=== PATIENT | male | born 1945 | race Caucasian/White ===

== ENCOUNTER → 2017-05-16 | Outpatient (REF) | payer MEDICARE, BC ==
[2017-05-16 12:23] LABS: ALBUMIN 3.7 GM/DL (3.2-5.2); ALBUMIN/GLOBULIN RATIO 0.86 (1.00-1.93); ALKALINE PHOSPHATASE 55 U/L (45-117); ALT/SGPT 27 U/L (12-78); ANION GAP 9 MEQ/L (8-16); AST/SGOT 18 U/L (15-37); BILIRUBIN,TOTAL 0.5 MG/DL (0.2-1.0); BLOOD UREA NITROGEN 22 MG/DL (7-18); CALCIUM LEVEL 8.9 MG/DL (8.8-10.2); CARBON DIOXIDE LEVEL 26 MEQ/L (21-32); CHLORIDE LEVEL 107 MEQ/L (98-107); CHOLESTEROL LEVEL 222 MG/DL (<200); CREATININE FOR GFR 1.15 MG/DL (0.70-1.30); GLOMERULAR FILTRATION RATE > 60.0 (>42); GLUCOSE, FASTING 98 MG/DL (83-110); POTASSIUM SERUM 4.6 MEQ/L (3.5-5.1); SODIUM LEVEL 142 MEQ/L (136-145); TRIGLYCERIDES LEVEL 77 MG/DL (<150)
== END ==
LOC: M SFHCCLAY 07:53
PROVIDERS: ATTEND Family Medicine
DX: Z00.00 Encounter for general adult medical examination without abnormal findings (principal); Z12.5 Encounter for screening for malignant neoplasm of prostate; E78.5 Hyperlipidemia, unspecified
CPT/HCPCS: 80053; 80061; 84443; G0103

== ENCOUNTER 2017-08-14 09:18 | Day surgery (SDC) | payer MEDICARE, BC ==
[~2017-08-14] VITALS: Ht 167.6 cm; Wt 82.1 kg
[~2017-08-14 09:18] MED LIST: ASPI1TAB PO; IBUP-1114 PO; SIMV10TA2 PO; TRAZ-136 PO
[2017-08-14] MEDS ORDERED: NS 1,000 ML IV ONE (09:30)
[2017-08-14] MEDS ORDERED: VITA500046 PO (10:10)
[2017-08-14] MEDS ORDERED: LIDOCAINE 2% INJ 100 MG/5 ML SDV (FOR ANES.) As Ordered ONE (10:47)
[2017-08-14] MEDS ORDERED: PROPOFOL 500 MG/50 ML VIAL As Ordered ONE (10:47)
--- NOTE | 2017-08-14 11:19 | ROOR ---
Patient Name: Jossue Matthew Procedure Date: 08/14/2017 10:47 AM Date of : 1945 Age: 71 Room: [facility] Gender: Male Note Status: Finalized Procedure: Total Colonoscopy to Cecum + Cold Snare Polypectomy Indications: High risk colon cancer surveillance: Personal history of colonic polyps, Last colonoscopy: 2013 Providers: Rosalino Shipman MD Referring MD: ALBERTO HEBERT DO Requesting Provider: Medicines: Monitored Anesthesia Care Complications: No immediate complications. Procedure: Pre-Anesthesia Assessment: - The heart rate, respiratory rate, oxygen saturations, blood pressure, adequacy of pulmonary ventilation, and response to care were monitored throughout the procedure. The Colonoscope was introduced through the anus and advanced to the cecum, identified by appendiceal orifice and ileocecal valve. The colonoscopy was performed without difficulty. The patient tolerated the procedure well. The quality of the bowel preparation was excellent. Findings: The perianal and digital rectal examinations were normal. Non-bleeding internal hemorrhoids were found during retroflexion. The hemorrhoids were small and Grade I (internal hemorrhoids that do not prolapse). Multiple sessile polyps were found in the ascending colon. The polyps were small in size. These polyps were removed with a cold snare. Resection and retrieval were complete. Multiple small and large-mouthed diverticula were found in the recto-sigmoid colon, sigmoid colon and descending colon. The exam was otherwise without abnormality on direct and retroflexion views. One medium-sized angioectasia without bleeding was found in the cecum. Impression: - Non-bleeding internal hemorrhoids. - Multiple small polyps in the ascending colon, removed with a cold snare. Resected and retrieved. - Diverticulosis in the recto-sigmoid colon, in the sigmoid colon and in the descending colon. - The examination was otherwise normal on direct and retroflexion views. - One non-bleeding colonic angioectasia. - The exam was otherwise normal to the cecum. Recommendation: - Patient has a contact number available for emergencies. The signs and symptoms of potential delayed complications were discussed with the patient. Return to normal activities tomorrow. Written discharge instructions were provided to the patient. - High fiber diet. - Discharge patient to home. - Continue present medications. - Await pathology results. - Telephone GI clinic for pathology results in 1 week. - Check Portal Online for Path Results.([email or web address]) - The findings and recommendations were discussed with the patient's family. Rosalino Shipman MD Rosalino Shipman MD 08/14/2017 11:19:24 AM This report has been signed electronically. Number of Addenda: 0 Note Initiated On: 08/14/2017 10:47 AM Estimated Blood Loss: Estimated blood loss: none.
[2017-08-14 11:40] VITALS: BP 128/82
== END 2017-08-14 11:54 | disposition home or self-care (01) ==
LOC: M OPP 09:18
PROVIDERS: ATTEND Internal Medicine Gastroenterology
DX: Z12.11 Encounter for screening for malignant neoplasm of colon (principal); Z86.010 Personal history of colon polyps; Z80.0 Family history of malignant neoplasm of digestive organs; D12.2 Benign neoplasm of ascending colon; K64.0 First degree hemorrhoids; K55.20 Angiodysplasia of colon without hemorrhage; K57.30 Diverticulosis of large intestine without perforation or abscess without bleeding; E78.5 Hyperlipidemia, unspecified; Z85.51 Personal history of malignant neoplasm of bladder; Z87.891 Personal history of nicotine dependence; M25.50 Pain in unspecified joint; M25.60 Stiffness of unspecified joint, not elsewhere classified; Z79.82 Long term (current) use of aspirin; Z79.899 Other long term (current) drug therapy

== ENCOUNTER → 2018-05-07 | Outpatient (REF) | payer MEDICARE, BC ==
[2018-05-07 12:20] LABS: CREATININE FOR GFR 1.17 MG/DL (0.70-1.30); GLOMERULAR FILTRATION RATE > 60.0 (>42)
[2018-05-07 12:20] LABS: BLOOD UREA NITROGEN 20 MG/DL (7-18)
== END ==
LOC: M LABDRAWC 11:36
DX: M54.2 Cervicalgia (principal)

== ENCOUNTER → 2018-05-07 | Outpatient (REF) | payer MEDICARE, BC ==
[2018-05-07 12:30] LABS: ALBUMIN 3.7 GM/DL (3.2-5.2); ALBUMIN/GLOBULIN RATIO 0.86 (1.00-1.93); ALKALINE PHOSPHATASE 56 U/L (45-117); ALT/SGPT 29 U/L (12-78); ANION GAP 9 MEQ/L (8-16); AST/SGOT 18 U/L (7-37); BILIRUBIN,TOTAL 0.4 MG/DL (0.2-1.0); BLOOD UREA NITROGEN 19 MG/DL (7-18); CALCIUM LEVEL 8.8 MG/DL (8.8-10.2); CARBON DIOXIDE LEVEL 26 MEQ/L (21-32); CHLORIDE LEVEL 106 MEQ/L (98-107); CHOLESTEROL LEVEL 227 MG/DL (<200); CHOLESTEROL RISK RATIO 3.492 (<5); CREATININE FOR GFR 1.12 MG/DL (0.70-1.30); GLOMERULAR FILTRATION RATE > 60.0 (>42); GLUCOSE, FASTING 99 MG/DL (70-100); HDL CHOLESTEROL 65 MG/DL (>40); LDL CHOLESTEROL 143.4 MG/DL (<100); NON-HDL-C 162 MG/DL; POTASSIUM SERUM 4.5 MEQ/L (3.5-5.1); PSA SCREENING 0.41 NG/ML (< 4.0); SODIUM LEVEL 141 MEQ/L (136-145); TRIGLYCERIDES LEVEL 93 MG/DL (<150)
== END ==
LOC: M SFHCCLAY 08:06
DX: Z00.00 Encounter for general adult medical examination without abnormal findings (principal); Z12.5 Encounter for screening for malignant neoplasm of prostate; E07.9 Disorder of thyroid, unspecified; E78.00 Pure hypercholesterolemia, unspecified
CPT/HCPCS: 84443

== ENCOUNTER → 2019-06-10 | Outpatient (REF) | payer MEDICARE, BC ==
[~2019-06-10] MED LIST changes: -ASPI1TAB PO; +ASPI81TA26 PO; -SIMV10TA2 PO; +SIMV10TA21 PO; -TRAZ-136 PO; +TRAZ-257 PO; +VITA500046 PO
[2019-06-10 11:55] LABS: HEMATOCRIT 42.5 % (42.0-52.0); MEAN CORPUSCULAR HEMOGLOBIN 31.4 pg (27.0-33.0); MEAN CORPUSCULAR HGB CONC 32.9 g/dl (32.0-36.5); MEAN CORPUSCULAR VOLUME 95.3 fl (80.0-96.0); PLATELET COUNT, AUTOMATED 239 10^3/uL (150-450); RED BLOOD COUNT 4.46 10^6/uL (4.30-6.10); WHITE BLOOD COUNT 7.1 10^3/uL (4.0-10.0)
[2019-06-10 12:33] LABS: ALBUMIN 3.9 GM/DL (3.2-5.2); ALT/SGPT 27 U/L (12-78); BILIRUBIN,TOTAL 0.6 MG/DL (0.2-1.0); BLOOD UREA NITROGEN 17 MG/DL (7-18); CALCIUM LEVEL 8.9 MG/DL (8.8-10.2); CARBON DIOXIDE LEVEL 28 MEQ/L (21-32); CHLORIDE LEVEL 103 MEQ/L (98-107); CHOLESTEROL LEVEL 210 MG/DL (<200); CHOLESTEROL RISK RATIO 2.876 (<5); CREATININE FOR GFR 1.25 MG/DL (0.70-1.30); GLOMERULAR FILTRATION RATE > 60.0 (>42); GLUCOSE, FASTING 102 MG/DL (70-100); HDL CHOLESTEROL 73 MG/DL (>40); LDL CHOLESTEROL 123 MG/DL (<100); NON-HDL-C 137 MG/DL; POTASSIUM SERUM 4.7 MEQ/L (3.5-5.1); SODIUM LEVEL 138 MEQ/L (136-145); TOTAL PROTEIN 7.9 GM/DL (6.4-8.2); TRIGLYCERIDES LEVEL 68 MG/DL (<150)
== END ==
LOC: M SFHCCLAY 08:35
PROVIDERS: ATTEND Family Medicine
DX: Z12.5 Encounter for screening for malignant neoplasm of prostate (principal); Z85.51 Personal history of malignant neoplasm of bladder; E78.2 Mixed hyperlipidemia
CPT/HCPCS: 80053; 80061; 85027; G0103

== ENCOUNTER → 2019-08-02 | Outpatient (REF) | payer MEDICARE, BC ==
[~2019-08-02] MED LIST changes: +SIMV10TA2 PO; -SIMV10TA21 PO; +TRAZ-163 PO; -TRAZ-257 PO
[2019-08-02 13:03] LABS: CREATININE FOR GFR 1.3 MG/DL (0.70-1.30); GLOMERULAR FILTRATION RATE 57.4 (>42)
== END ==
LOC: M SFHCCLAY 11:18
PROVIDERS: ATTEND Physician Assistant
DX: Z01.812 Encounter for preprocedural laboratory examination (principal)

== ENCOUNTER → 2019-08-09 | Outpatient (CLI) | payer MEDICARE, BC ==
--- NOTE | 2019-08-09 15:22 | REP ---
MRI lumbar spine: 08/09/2019. Indication: Low back pain. Comparison: None. Technique: Multiplanar short and long TR sequences of the lumbar spine were obtained including post-gadolinium images. 16 ml IV ProHance were administered. Findings: There is overall straightening of the lumbar lordosis. There is minimal retrolisthesis of L2 on L3 and minimal anterolisthesis of L5 on S1. The visualized cord is unremarkable. There is a small area of elevated T2 signal with gadolinium enhancement involving the right pedicle of the L2. No additional concerning marrow signal is present. L1/L2: Diffuse disc and spur complex, most apparent anteriorly and mild bilateral facet arthropathy are present with severe narrowing of the spinal canal. There is severe right and moderate left neural foraminal narrowing. L2/L3: Diffuse disc and spur complex is present, most apparent anteriorly with bilateral facet arthropathy. There is severe left greater than right recess narrowing. Moderate bilateral neural foraminal narrowing is present. L3/L4: Diffuse disc and spur complex and significant bilateral facet arthropathy are present with severe spinal canal and left neural foraminal narrowing. There is moderate right neural foraminal narrowing. L4/L5: Diffuse disc and spur complex is present, most apparent anteriorly on the right with right greater than left facet arthropathy. There is moderate bilateral recess narrowing. There is severe right neural foraminal narrowing. The left neural foramen is patent. L5/S1: There is a right paracentral disc extrusion with mild cephalad migration superimposed on a diffuse disc bulge. The herniation does encroach upon the right S1 nerve root within the recess with posterior displacement. There is moderate right greater than left neural foraminal narrowing. 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 Abnormal marrow signal and enhancement within the right L2 pedicle. Reactive changes are favored over of metastasis. Electronically Signed by Christos Aguillon DO 08/09/2019 03:13 P
== END ==
LOC: M PLARAD 13:18
PROVIDERS: ATTEND Physical Medicine & Rehabilitation
DX: M48.061 Spinal stenosis, lumbar region without neurogenic claudication (principal); M51.26 Other intervertebral disc displacement, lumbar region

== ENCOUNTER → 2019-09-05 | Outpatient (REF) | payer MEDICARE, BC ==
[~2019-09-05] MED LIST changes: -SIMV10TA2 PO; +SIMV10TA21 PO
[2019-09-05 17:16] LABS: PLATELET COUNT, AUTOMATED 259 10^3/uL (150-450)
[2019-09-05 17:31] LABS: INR 1.05; PROTHROMBIN TIME 13.4 SECONDS (11.8-14.0)
[2019-09-05 17:32] LABS: PARTIAL THROMBOPLASTIN TIME 24.3 SECONDS (25.0-38.4)
== END ==
LOC: M LABDRAW1 15:27
PROVIDERS: ATTEND Physical Medicine & Rehabilitation
DX: M48.061 Spinal stenosis, lumbar region without neurogenic claudication (principal)

== ENCOUNTER → 2019-10-17 | Outpatient (CLI) | payer MEDICARE, BC ==
[~2019-10-17] MED LIST changes: -TRAZ-163 PO; +TRAZ-257 PO
--- NOTE | 2019-10-17 14:09 | REP ---
Whole body radionuclide bone scan: History: Spinal stenosis in the lumbar region. Question metastasis. History of bladder carcinoma. Technique: 21.5 mCi technetium 99m MDP is injected and standard whole body bone scan imaging was acquired. Findings: There is osteoarthritic pattern of increased uptake involving the acromioclavicular joints, the medial compartment of each knee, and the right first MTP joint. There is a focus of increased uptake at the lower costosternal junction consistent with inflammation or fracture of one in the medial rib cartilages. There is a focus of increased uptake in the superior acetabular region of the right hip consistent with degenerative change and osteoarthritis. There is photopenia in the left femoral head consistent with a history of left hip replacement in 2016. There is facet uptake indicating osteoarthritis in the mid cervical spine and degenerative disc changes are noted in the lumbar spine. There is no evidence to suggest skeletal metastatic disease. Uptake is seen in bilateral kidneys and in the urinary bladder. Impression: Degenerative and osteoarthritic uptake pattern. No evidence to suggest skeletal metastatic disease. Electronically Signed by Avni Bell MD 10/17/2019 04:58 P
== END ==
LOC: M RAD 09:34
PROVIDERS: ATTEND Physical Medicine & Rehabilitation
DX: M48.061 Spinal stenosis, lumbar region without neurogenic claudication (principal)

== ENCOUNTER → 2020-02-21 | Outpatient (REF) | payer MEDICARE, BC | LOC: M LAB REF 18:04 | PROVIDERS: ATTEND Dermatology | DX: D23.5 Other benign neoplasm of skin of trunk (principal) | CPT/HCPCS: 11102; 17000; 88305; G0463 ==

== ENCOUNTER → 2020-03-20 | Outpatient (CLI) | payer MEDICARE, BC | LOC: M LABSMTC 09:34 | PROVIDERS: ATTEND Physical Medicine & Rehabilitation | DX: Z11.59 Encounter for screening for other viral diseases (principal); Z03.89 Encounter for observation for other suspected diseases and conditions ruled out ==

== ENCOUNTER → 2020-06-17 | Outpatient (REF) | payer MEDICARE, BC ==
[2020-06-17 12:17] LABS: PLATELET COUNT, AUTOMATED 255 10^3/uL (150-450)
[2020-06-17 12:30] LABS: INR 0.95; PARTIAL THROMBOPLASTIN TIME 23.5 SECONDS (24.2-38.5); PROTHROMBIN TIME 12.8 SECONDS (12.5-14.3)
== END ==
LOC: M LABDRAWC 11:04
PROVIDERS: ATTEND Physician Assistant
DX: M47.27 Other spondylosis with radiculopathy, lumbosacral region (principal)

== ENCOUNTER → 2020-06-17 | Outpatient (REF) | payer MEDICARE, BC ==
[2020-06-17 12:22] LABS: CREATININE FOR GFR 1.3 MG/DL (0.70-1.30); GLOMERULAR FILTRATION RATE 57.3 (>42); POTASSIUM SERUM 4.4 MEQ/L (3.5-5.1)
[2020-06-17 12:23] LABS: CALCIUM LEVEL 9.6 MG/DL (8.8-10.2); CHOLESTEROL RISK RATIO 3.5 (<5)
[2020-06-17 13:16] LABS: HEMOGLOBIN A1c 5.6 %
== END ==
LOC: M SFHCCLAY 11:06
PROVIDERS: ATTEND Family Medicine
DX: E78.49 Other hyperlipidemia (principal); R73.01 Impaired fasting glucose; M47.27 Other spondylosis with radiculopathy, lumbosacral region

== ENCOUNTER → 2020-07-22 | Outpatient (CLI) | payer MEDICARE, BC | LOC: M LABSMTC 11:45 | PROVIDERS: ATTEND Physical Medicine & Rehabilitation | DX: Z01.818 Encounter for other preprocedural examination (principal); Z20.828 Contact with and (suspected) exposure to other viral communicable diseases ==

== ENCOUNTER → 2021-01-12 | Outpatient (CLI) | payer MEDICARE, BC ==
--- NOTE | 2021-01-12 09:39 | REP ---
INDICATION: DISC DISPLACEMENT, LUMBOSACRAL REGION. COMPARISON: None TECHNIQUE: 3T multiplanar MRI imaging of the pelvis was obtained using various sequences. FINDINGS: There is marked magnetic susceptibility artifact arising from a left hip prosthesis which obscures all of the left hip detail and some of the left alejandro pelvic detail. There is advanced asymmetric narrowing of the right hip joint with prominent femoral head marginal osteophytosis. There is a 2.3 cm sized complex fluid collection superolateral to the right hip joint. There is evidence of anterior truncation of the labrum with linear and patchy T2 hyper signal present. Degenerative changes are seen involving the sacroiliac joints. Chronic changes are seen involving the imaged portion of the lumbar spine. IMPRESSION: Advanced chronic right hip degenerative changes as described above. Degenerative labral pathology is noted. Other findings and limitations as described above. <Electronically signed by Jude Ledbetter > 01/12/21 [id number]
== END ==
LOC: M RAD 07:20
PROVIDERS: ATTEND Physical Medicine & Rehabilitation
DX: M51.27 Other intervertebral disc displacement, lumbosacral region (principal); M16.11 Unilateral primary osteoarthritis, right hip

== ENCOUNTER → 2021-01-14 | Outpatient (REF) | payer MEDICARE, BC ==
[2021-01-14 12:55] LABS: BLOOD UREA NITROGEN 18 MG/DL (7-18); GLOMERULAR FILTRATION RATE > 60.0 (>42)
== END ==
LOC: M LABDRWAD 11:55
PROVIDERS: ATTEND Physical Medicine & Rehabilitation
DX: M51.27 Other intervertebral disc displacement, lumbosacral region (principal)

== ENCOUNTER → 2021-01-18 | Outpatient (CLI) | payer MEDICARE, BC ==
[~2021-01-18] MED LIST changes: +PROHANCE 279.3MG/ML 15ML VIAL As Ordered ONE; +PROHANCE 279.3MG/ML 5ML VIAL As Ordered ONE
--- NOTE | 2021-01-18 18:53 | REPVR ---
PROCEDURE INFORMATION: Exam: MR Lumbar Spine Without and With Contrast Exam date and time: 01/18/2021 4:04 PM Age: 75 years old Clinical indication: Low back pain; Patient HX: HX bladder CA; Additional info: Disc displacement TECHNIQUE: Imaging protocol: Multiplanar magnetic resonance images of the lumbar spine without and with intravenous contrast. Contrast material: PROHANCE; Contrast volume: 16 ml; Contrast route: INTRAVENOUS (IV); COMPARISON: MRI-LS SPINE W/O FOLL WITH CON 08/09/2019 2:00 PM FINDINGS: Straightening of the lumbar lordosis. Lumbar vertebral body heights are maintained. Mild Modic type edematous degenerative endplate changes at L1-L2 and L2-L3. No evidence of acute lumbar spine fracture. No cord compression. No abnormal cord signal. Conus medullaris terminates at the L1 level. Paravertebral soft tissues are unremarkable. L1-L2: Broad-based disc bulge and facet hypertrophy cause mild canal narrowing and moderate bilateral foraminal narrowing. L2-L3: Left paracentral disc protrusion superimposed over broad-based disc bulge causes moderate canal narrowing and effacement of the left lateral recess with compression of the traversing left L3 nerve root. Along with facet hypertrophy there is mild right and moderate left foraminal narrowing. L3-L4: Broad-based disc bulge and facet hypertrophy cause moderate canal narrowing with moderate right and severe left foraminal narrowing. L4-L5: Broad-based disc bulge and facet hypertrophy cause mild canal narrowing with moderate left and severe right foraminal narrowing. Compression of the exiting right L4 nerve root. L5-S1: Right paracentral disc protrusion and facet hypertrophy causes mild canal narrowing with mild left and moderate right foraminal narrowing. 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 Electronically signed by: Carlos Guerrero On 01/18/2021 18:52:32 PM
== END ==
LOC: M RAD 14:53
PROVIDERS: ATTEND Physical Medicine & Rehabilitation
DX: M51.27 Other intervertebral disc displacement, lumbosacral region (principal); M47.816 Spondylosis without myelopathy or radiculopathy, lumbar region
CPT/HCPCS: 72158; A9576

== ENCOUNTER → 2021-03-30 | Outpatient (REF) | payer MEDICARE, BC ==
[~2021-03-30] MED LIST changes: -PROHANCE 279.3MG/ML 15ML VIAL As Ordered ONE; -PROHANCE 279.3MG/ML 5ML VIAL As Ordered ONE
[2021-03-30 11:45] LABS: PLATELET COUNT, AUTOMATED 242 10^3/uL (150-450)
[2021-03-30 11:58] LABS: INR 0.93; PROTHROMBIN TIME 12.7 SECONDS (12.5-14.3)
[2021-03-30 11:59] LABS: PARTIAL THROMBOPLASTIN TIME 23.8 SECONDS (24.2-38.5)
== END ==
LOC: M LABDRAWC 11:22
PROVIDERS: ATTEND Physical Medicine & Rehabilitation
DX: M51.37 Other intervertebral disc degeneration, lumbosacral region (principal)

== ENCOUNTER → 2021-07-08 | Outpatient (REF) | payer MEDICARE, BC ==
[2021-07-08 11:49] LABS: HEMOGLOBIN A1c 5.5 %
[2021-07-08 11:51] LABS: BLOOD UREA NITROGEN 21 MG/DL (7-18); CALCIUM LEVEL 9.6 MG/DL (8.8-10.2); CARBON DIOXIDE LEVEL 31 MEQ/L (21-32); CHLORIDE LEVEL 108 MEQ/L (98-107); CREATININE FOR GFR 1.08 MG/DL (0.70-1.30); GLOMERULAR FILTRATION RATE > 60.0 (>42); GLUCOSE, FASTING 105 MG/DL (70-100); POTASSIUM SERUM 4.4 MEQ/L (3.5-5.1); SODIUM LEVEL 142 MEQ/L (136-145)
== END ==
LOC: M SFHCCLAY 08:32
PROVIDERS: ATTEND Family Medicine
DX: Z12.5 Encounter for screening for malignant neoplasm of prostate (principal); R73.01 Impaired fasting glucose
CPT/HCPCS: 80048; 83036; G0103

== ENCOUNTER → 2021-07-20 | Outpatient (CLI) | payer MEDICARE, BC ==
--- NOTE | 2021-07-20 20:24 | REPVR ---
PROCEDURE INFORMATION: Exam: MR Cervical Spine Without Contrast Exam date and time: 07/20/2021 6:37 PM Age: 75 years old Clinical indication: Radiculopathy; Cervical region TECHNIQUE: Imaging protocol: Multiplanar magnetic resonance images of the cervical spine without contrast. COMPARISON: NM Bone Scan Whole Body 10/17/2019 10:18 AM FINDINGS: Cervical vertebral body heights are intact. The dens is intact. No abnormal marrow signal. No cord compression, expansion, or abnormal cord signal. Visualized structures of the posterior fossa are unremarkable. Soft tissues are unremarkable. C2-C3: No significant canal or foraminal narrowing. C3-C4: Posterior disc protrusion and uncovertebral spurring cause mild canal narrowing with moderate left and severe right foraminal narrowing. C4-C5: Posterior disc protrusion and uncovertebral spurring cause mild canal narrowing with mild right and moderate left foraminal narrowing. C5-C6: Posterior disc protrusion and uncovertebral spurring cause mild to moderate canal narrowing with effacement of the anterior thecal sac. Moderate left and moderate to severe right foraminal narrowing. C6-C7: Posterior disc protrusion and uncovertebral spurring cause mild to moderate canal narrowing with effacement of the anterior thecal sac. Severe left and moderate to severe right foraminal narrowing. C7-T1: No significant canal or foraminal narrowing. IMPRESSION: Multilevel in a advanced spondylotic changes of the cervical spine, as detailed above. Electronically signed by: Carlos Guerrero On 07/20/2021 20:23:34 PM
== END ==
LOC: M RAD 17:57
DX: M51.16 Intervertebral disc disorders with radiculopathy, lumbar region (principal); M47.22 Other spondylosis with radiculopathy, cervical region

== ENCOUNTER → 2021-10-04 | Outpatient (REF) | payer MEDICARE, BC ==
[2021-10-04 12:30] LABS: PLATELET COUNT, AUTOMATED 275 10^3/uL (150-450)
[2021-10-04 12:38] LABS: INR 0.97; PROTHROMBIN TIME 13.3 SECONDS (12.7-14.5)
[2021-10-04 12:39] LABS: PARTIAL THROMBOPLASTIN TIME 24.6 SECONDS (25.9-37.0)
== END ==
LOC: M LABDRAWC 11:15
PROVIDERS: ATTEND Physical Medicine & Rehabilitation
DX: M54.2 Cervicalgia (principal)

== ENCOUNTER → 2022-03-03 | Outpatient (CLI) | payer MEDICARE, BC | LOC: M CLY 08:19 | PROVIDERS: ATTEND Family Medicine | DX: R05.9 Cough, unspecified (principal); R06.02 Shortness of breath ==

== ENCOUNTER → 2022-04-27 | Outpatient (REF) | payer MEDICARE, BC ==
[2022-04-27 12:08] LABS: BLOOD UREA NITROGEN 16 MG/DL (7-18); CREATININE FOR GFR 1.15 MG/DL (0.70-1.30); GLOMERULAR FILTRATION RATE > 60.0 (>42)
== END ==
LOC: M LABDRAWC 11:07
PROVIDERS: ATTEND Physical Medicine & Rehabilitation
DX: M47.26 Other spondylosis with radiculopathy, lumbar region (principal)

== ENCOUNTER → 2022-05-02 | Outpatient (CLI) | payer MEDICARE, BC ==
[~2022-05-02] MED LIST changes: +PROHANCE 279.3MG/ML 15ML VIAL ONE
== END ==
LOC: M PLAIMG 13:44
PROVIDERS: ATTEND Physical Medicine & Rehabilitation
DX: M47.26 Other spondylosis with radiculopathy, lumbar region (principal); M51.16 Intervertebral disc disorders with radiculopathy, lumbar region; M48.061 Spinal stenosis, lumbar region without neurogenic claudication
CPT/HCPCS: 72158; A9576

== ENCOUNTER → 2022-06-09 | Outpatient (REF) | payer MEDICARE, BC ==
[~2022-06-09] MED LIST changes: -PROHANCE 279.3MG/ML 15ML VIAL ONE
[2022-06-09 11:42] LABS: PLATELET COUNT, AUTOMATED 250 10^3/uL (150-450)
[2022-06-09 11:52] LABS: INR 0.95; PARTIAL THROMBOPLASTIN TIME 25.1 SECONDS (25.9-37.0); PROTHROMBIN TIME 13.1 SECONDS (12.7-14.5)
== END ==
LOC: M LABDRAWC 11:06
PROVIDERS: ATTEND Physical Medicine & Rehabilitation
DX: M47.26 Other spondylosis with radiculopathy, lumbar region (principal)

== ENCOUNTER → 2022-07-27 | Outpatient (REF) | payer MEDICARE, BC | LOC: M LABDRAWC 11:15 | DX: N40.2 Nodular prostate without lower urinary tract symptoms (principal) ==

== ENCOUNTER → 2022-09-23 | Outpatient (CLI) | payer MEDICARE, BC | LOC: M PLAIMG 09:15 | DX: M75.111 Incomplete rotator cuff tear or rupture of right shoulder, not specified as traumatic (principal) ==

== ENCOUNTER → 2022-10-18 | Outpatient (REF) | payer MEDICARE, BC ==
[2022-10-18 16:26] LABS: BASO % 0.5 % (0.0-1.0); EOS # 0.3 10^3/uL (0.0-0.5); EOS % 3.3 % (0.0-3.0); HEMATOCRIT 42.6 % (42.0-52.0); HEMOGLOBIN 13.8 g/dl (13.5-17.5); LYMPH # 1.4 10^3/uL (1.5-5.0); MEAN CORPUSCULAR HEMOGLOBIN 31.4 pg (27.0-33.0); MEAN CORPUSCULAR HGB CONC 32.4 g/dl (32.0-36.5); MONO # 0.9 10^3/uL (0.0-0.8); MONO % 11.8 % (2.0-8.0); NEUTROPHILS # 5.2 10^3/uL (1.5-8.5); PLATELET COUNT, AUTOMATED 242 10^3/uL (150-450); RED BLOOD COUNT 4.39 10^6/uL (4.30-6.10); WHITE BLOOD COUNT 7.8 10^3/uL (4.0-10.0)
[2022-10-18 16:45] LABS: HEMOGLOBIN A1c 5.5 % (4.0-6.0)
[2022-10-18 18:45] LABS: BLOOD UREA NITROGEN 19 MG/DL (9-23); CALCIUM LEVEL 9.5 MG/DL (8.3-10.6); CARBON DIOXIDE LEVEL 25 MMOL/L (20-31); CHLORIDE LEVEL 104 MMOL/L (98-107); CHOLESTEROL LEVEL 218 MG/DL (<200); CHOLESTEROL RISK RATIO 2.86 (<5); CREATININE FOR GFR 1.07 MG/DL (0.70-1.30); GLOMERULAR FILTRATION RATE > 60.0 (>42); GLUCOSE, FASTING 108 MG/DL (74-106); LDL CHOLESTEROL 131.4 MG/DL (<100); NON-HDL-C 142 MG/DL; POTASSIUM SERUM 4.7 MMOL/L (3.5-5.1); SODIUM LEVEL 140 MMOL/L (136-145); TRIGLYCERIDES LEVEL 53 MG/DL (<150)
[2022-10-18 20:03] LABS: VITAMIN B12 LEVEL 282 PG/ML (211-911)
== END ==
LOC: M SFHCCLAY 10:19
PROVIDERS: ATTEND Family Medicine
DX: Z00.00 Encounter for general adult medical examination without abnormal findings (principal); E78.2 Mixed hyperlipidemia; R73.01 Impaired fasting glucose; G62.9 Polyneuropathy, unspecified; Z85.51 Personal history of malignant neoplasm of bladder

== ENCOUNTER → 2023-01-09 | Outpatient (REF) | payer MEDICARE, BC ==
[2023-01-09 17:31] LABS: BASO # 0.1 10^3/uL (0.0-0.2); BASO % 0.6 % (0.0-1.0); EOS # 0.1 10^3/uL (0.0-0.5); EOS % 1.4 % (0.0-3.0); HEMOGLOBIN 13.3 g/dl (13.5-17.5); LYMPH # 1.4 10^3/uL (1.5-5.0); LYMPH % 15.9 % (24.0-44.0); MEAN CORPUSCULAR HEMOGLOBIN 32.1 pg (27.0-33.0); MEAN CORPUSCULAR HGB CONC 33.3 g/dl (32.0-36.5); MEAN CORPUSCULAR VOLUME 96.6 fl (80.0-96.0); NEUTROPHILS # 6.2 10^3/uL (1.5-8.5); NEUTROPHILS % 70.8 % (36.0-66.0); PLATELET COUNT, AUTOMATED 261 10^3/uL (150-450); RED BLOOD COUNT 4.14 10^6/uL (4.30-6.10); WHITE BLOOD COUNT 8.7 10^3/uL (4.0-10.0)
[2023-01-09 17:47] LABS: PROTHROMBIN TIME 13.4 SECONDS (12.5-14.5)
[2023-01-09 17:48] LABS: PARTIAL THROMBOPLASTIN TIME 23.4 SECONDS (24.8-34.2)
== END ==
LOC: M LABDRAWC 17:06
DX: Z01.818 Encounter for other preprocedural examination (principal)

== ENCOUNTER → 2023-01-10 | Outpatient (CLI) | payer MEDICARE, BC | LOC: M EKG 09:44 | DX: Z01.818 Encounter for other preprocedural examination (principal); I49.1 Atrial premature depolarization; Z79.899 Other long term (current) drug therapy ==

== ENCOUNTER → 2023-01-10 | Outpatient (REF) | payer MEDICARE, BC ==
[2023-01-10 18:44] LABS: BLOOD UREA NITROGEN 24 MG/DL (9-23); CALCIUM LEVEL 9.7 MG/DL (8.3-10.6); CARBON DIOXIDE LEVEL 29 MMOL/L (20-31); CHLORIDE LEVEL 102 MMOL/L (98-107); CREATININE FOR GFR 1.02 MG/DL (0.70-1.30); GLOMERULAR FILTRATION RATE > 60.0 (>42); GLUCOSE, FASTING 109 MG/DL (74-106); POTASSIUM SERUM 4.6 MMOL/L (3.5-5.1); SODIUM LEVEL 140 MMOL/L (136-145)
== END ==
LOC: M LABDRAWC 17:00
DX: Z01.818 Encounter for other preprocedural examination (principal); Z79.899 Other long term (current) drug therapy

== ENCOUNTER → 2023-05-15 | Outpatient (CLI) | payer MEDICARE, BC | LOC: M RAD 14:31 | PROVIDERS: ATTEND Family Medicine | DX: Z12.2 Encounter for screening for malignant neoplasm of respiratory organs (principal); F17.210 Nicotine dependence, cigarettes, uncomplicated; R91.8 Other nonspecific abnormal finding of lung field; J84.10 Pulmonary fibrosis, unspecified ==

== ENCOUNTER → 2023-05-30 | Outpatient (REF) | payer MEDICARE, BC ==
[2023-05-30 11:35] LABS: CHOLESTEROL RISK RATIO 2.82 (<5); HDL CHOLESTEROL 57.6 MG/DL (>40); NON-HDL-C 105.4 MG/DL
== END ==
LOC: M SFHCCLAY 08:51
PROVIDERS: ATTEND Family Medicine
DX: E78.00 Pure hypercholesterolemia, unspecified (principal)

== ENCOUNTER → 2023-10-02 | Outpatient (REF) | payer MEDICARE, BC ==
[2023-10-02 11:43] LABS: BASO % 0.6 % (0.0-1.0); EOS # 0.6 10^3/uL (0.0-0.5); HEMATOCRIT 41.5 % (42.0-52.0); HEMOGLOBIN 13.8 g/dl (13.5-17.5); LYMPH # 1.6 10^3/uL (1.5-5.0); LYMPH % 23.4 % (24.0-44.0); MEAN CORPUSCULAR HEMOGLOBIN 30.9 pg (27.0-33.0); MEAN CORPUSCULAR HGB CONC 33.3 g/dl (32.0-36.5); MONO # 0.9 10^3/uL (0.0-0.8); MONO % 13.1 % (2.0-8.0); NEUTROPHILS # 3.8 10^3/uL (1.5-8.5); NEUTROPHILS % 54.6 % (36.0-66.0); PLATELET COUNT, AUTOMATED 276 10^3/uL (150-450); RED BLOOD COUNT 4.46 10^6/uL (4.30-6.10); WHITE BLOOD COUNT 6.9 10^3/uL (4.0-10.0)
[2023-10-02 12:08] LABS: ALBUMIN 3.9 G/DL (3.2-5.2); ALKALINE PHOSPHATASE 55 U/L (46-116); ALT/SGPT 14 U/L (7.0-40); AST/SGOT 16 U/L (<34); BILIRUBIN,TOTAL 0.3 MG/DL (0.3-1.2); BLOOD UREA NITROGEN 21 MG/DL (9-23); CALCIUM LEVEL 9.4 MG/DL (8.3-10.6); CARBON DIOXIDE LEVEL 28 MMOL/L (20-31); CHLORIDE LEVEL 105 MMOL/L (98-107); CREATININE FOR GFR 1.19 MG/DL (0.70-1.30); GLOMERULAR FILTRATION RATE > 60.0 (>42); GLUCOSE, FASTING 103 MG/DL (74-106); POTASSIUM SERUM 4.5 MMOL/L (3.5-5.1); SODIUM LEVEL 139 MMOL/L (136-145); TOTAL PROTEIN 7.8 G/DL (5.7-8.2)
== END ==
LOC: M SFHCCLAY 09:30
PROVIDERS: ATTEND Family Medicine
DX: Z00.00 Encounter for general adult medical examination without abnormal findings (principal); F17.210 Nicotine dependence, cigarettes, uncomplicated; E78.00 Pure hypercholesterolemia, unspecified

== ENCOUNTER → 2023-11-01 | Outpatient (REF) | payer MEDICARE, BC ==
[2023-11-01 16:41] LABS: BASO # 0.1 10^3/uL (0.0-0.2); BASO % 0.8 % (0.0-1.0); EOS # 0.5 10^3/uL (0.0-0.5); EOS % 7.4 % (0.0-3.0); HEMATOCRIT 42.6 % (42.0-52.0); HEMOGLOBIN 13.9 g/dl (13.5-17.5); LYMPH # 1.6 10^3/uL (1.5-5.0); LYMPH % 25.9 % (24.0-44.0); MEAN CORPUSCULAR HEMOGLOBIN 31.2 pg (27.0-33.0); MEAN CORPUSCULAR HGB CONC 32.6 g/dl (32.0-36.5); MEAN CORPUSCULAR VOLUME 95.5 fl (80.0-96.0); MONO # 0.9 10^3/uL (0.0-0.8); MONO % 14.6 % (2.0-8.0); NEUTROPHILS # 3.1 10^3/uL (1.5-8.5); PLATELET COUNT, AUTOMATED 241 10^3/uL (150-450); RED BLOOD COUNT 4.46 10^6/uL (4.30-6.10); WHITE BLOOD COUNT 6.1 10^3/uL (4.0-10.0)
[2023-11-01 17:13] LABS: BLOOD UREA NITROGEN 19 MG/DL (9-23); CALCIUM LEVEL 9.3 MG/DL (8.3-10.6); CARBON DIOXIDE LEVEL 30 MMOL/L (20-31); CHLORIDE LEVEL 103 MMOL/L (98-107); CREATININE FOR GFR 1.15 MG/DL (0.70-1.30); GLOMERULAR FILTRATION RATE > 60.0 (>42); GLUCOSE, FASTING 100 MG/DL (74-106); POTASSIUM SERUM 4.7 MMOL/L (3.5-5.1); SODIUM LEVEL 139 MMOL/L (136-145); THYROID STIMULATING HORMONE 3.812 uIU/ML (0.55-4.78)
[2023-11-01 17:14] LABS: FREE T4 1.15 NG/DL (0.89-1.76)
== END ==
LOC: M SFHCCLAY 11:11
PROVIDERS: ATTEND Physician Assistant
DX: R00.0 Tachycardia, unspecified (principal)

== ENCOUNTER → 2024-01-12 | Day surgery (SDC) | payer MEDICARE, BC ==
[~2024-01-12] VITALS: Ht 170.2 cm; Wt 78.6 kg
[~2024-01-12] MED LIST changes: +ATOR1TAB19 PO; +CHOL50002 PO; +DONE5TAB82 PO; +HYDROMORPHONE HCL 0.5 MG/ 0.5 ML SYRINGE IV PRN; +KETOROLAC 60MG 2ML VIAL As Ordered ONE; +LIDOCAINE 2% INJ 100 MG/5 ML SYRINGE As Ordered ONE; +LR 1,000 ML IV SCH; +ONDANSETRON 4MG 2ML VIAL IV PRN; +fentaNYL 100 MCG/2 ML INJECTION As Ordered ONE; +fentaNYL 100 MCG/2 ML INJECTION IV PRN; +oxyCODONE 5MG TAB PO PRN; +propofoL 200 MG/20 ML VIAL As Ordered ONE
[2024-01-12] MEDS: LR 1,000 ML IV SCH (07:06)
[2024-01-12 09:51] VITALS: BP 143/76; TEMP 97; O2SAT 95
== END | disposition home or self-care (01) ==
LOC: M SDC 06:19
PROVIDERS: ATTEND Orthopaedic Surgery Hand Surgery
DX: G56.02 Carpal tunnel syndrome, left upper limb (principal); I10 Essential (primary) hypertension; E78.00 Pure hypercholesterolemia, unspecified; Z79.899 Other long term (current) drug therapy; Z79.82 Long term (current) use of aspirin; Z85.51 Personal history of malignant neoplasm of bladder; Z87.891 Personal history of nicotine dependence
CPT/HCPCS: 29848; J0665; J1885; J3010

== ENCOUNTER → 2024-02-06 | Outpatient (REF) | payer MEDICARE, BC ==
[~2024-02-06] MED LIST changes: -HYDROMORPHONE HCL 0.5 MG/ 0.5 ML SYRINGE IV PRN; -KETOROLAC 60MG 2ML VIAL As Ordered ONE; -LIDOCAINE 2% INJ 100 MG/5 ML SYRINGE As Ordered ONE; -LR 1,000 ML IV SCH; -ONDANSETRON 4MG 2ML VIAL IV PRN; -fentaNYL 100 MCG/2 ML INJECTION As Ordered ONE; -fentaNYL 100 MCG/2 ML INJECTION IV PRN; -oxyCODONE 5MG TAB PO PRN; -propofoL 200 MG/20 ML VIAL As Ordered ONE
[2024-02-06 11:36] LABS: PLATELET COUNT, AUTOMATED 266 10^3/uL (150-450)
[2024-02-06 11:44] LABS: INR 1.07; PARTIAL THROMBOPLASTIN TIME 23.5 SECONDS (24.8-34.2); PROTHROMBIN TIME 13.6 SECONDS (12.5-14.5)
== END ==
LOC: M LABDRAWC 11:20
PROVIDERS: ATTEND Physical Medicine & Rehabilitation
DX: Z01.818 Encounter for other preprocedural examination (principal); Z79.01 Long term (current) use of anticoagulants

== ENCOUNTER → 2024-07-05 | Outpatient (CLI) | payer MEDICARE, BC | LOC: M RAD 09:50 | PROVIDERS: ATTEND Family Medicine | DX: Z12.2 Encounter for screening for malignant neoplasm of respiratory organs (principal); F17.210 Nicotine dependence, cigarettes, uncomplicated; J44.9 Chronic obstructive pulmonary disease, unspecified; R91.1 Solitary pulmonary nodule ==

== ENCOUNTER → 2025-01-16 | Outpatient (REF) | payer MEDICARE, BC ==
[2025-01-16 12:41] LABS: ALBUMIN 3.6 G/DL (3.2-5.2); BILIRUBIN,TOTAL 0.3 MG/DL (0.3-1.2); CALCIUM LEVEL 9.1 MG/DL (8.3-10.6); CHOLESTEROL RISK RATIO 3.05 (<5); CREATININE FOR GFR 1.18 MG/DL (0.70-1.30); GLOMERULAR FILTRATION RATE 62.4 (>35); HDL CHOLESTEROL 51.4 MG/DL (>40); LDL CHOLESTEROL 94.6 MG/DL (<100); NON-HDL-C 105.6 MG/DL; POTASSIUM SERUM 4.4 MMOL/L (3.5-5.1); TOTAL PROTEIN 7.8 G/DL (5.7-8.2)
[2025-01-16 12:48] LABS: HEMOGLOBIN A1c 5.4 % (4.0-6.0)
== END ==
LOC: M SFHCCLAY 09:07
PROVIDERS: ATTEND Physician Assistant
DX: G31.84 Mild cognitive impairment of uncertain or unknown etiology (principal); M79.89 Other specified soft tissue disorders; E78.2 Mixed hyperlipidemia; R91.1 Solitary pulmonary nodule; Z79.899 Other long term (current) drug therapy

== ENCOUNTER → 2025-02-03 | Outpatient (CLI) | payer MEDICARE, BC ==
[~2025-02-03] MED LIST changes: +PROHANCE 279.3MG/ML 15ML VIAL ONE; +PROHANCE 279.3MG/ML 5ML VIAL ONE
== END ==
LOC: M PLAIMG 13:38
PROVIDERS: ATTEND Physical Medicine & Rehabilitation
DX: M51.372 Other intervertebral disc degeneration, lumbosacral region with discogenic back pain and lower extremity pain (principal); M54.17 Radiculopathy, lumbosacral region
CPT/HCPCS: 72158; A9576

== ENCOUNTER → 2025-04-14 | Outpatient (CLI) | payer MEDICARE, BC ==
[~2025-04-14] MED LIST changes: -PROHANCE 279.3MG/ML 15ML VIAL ONE; -PROHANCE 279.3MG/ML 5ML VIAL ONE
[2025-04-14 15:10] LABS: CREATININE FOR GFR 1.21 MG/DL (0.70-1.30); GLOMERULAR FILTRATION RATE 60.5 (>35)
== END ==
LOC: M LAB 13:37
PROVIDERS: ATTEND Surgery
DX: R93.3 Abnormal findings on diagnostic imaging of other parts of digestive tract (principal)

== ENCOUNTER → 2025-04-17 | Outpatient (CLI) | payer MEDICARE, BC ==
[~2025-04-17] MED LIST changes: +DONE10TA90 PO; +ISOVUE-370 76% 100 ML VIAL As Ordered ONE
== END ==
LOC: M RAD 15:11
PROVIDERS: ATTEND Surgery
DX: R93.3 Abnormal findings on diagnostic imaging of other parts of digestive tract (principal); J98.11 Atelectasis; J47.9 Bronchiectasis, uncomplicated; N28.1 Cyst of kidney, acquired; K57.30 Diverticulosis of large intestine without perforation or abscess without bleeding; I77.0 Arteriovenous fistula, acquired; K76.0 Fatty (change of) liver, not elsewhere classified; D61.9 Aplastic anemia, unspecified
CPT/HCPCS: 74177; 77080; Q9967

== ENCOUNTER → 2025-04-17 | Outpatient (CLI) | payer MEDICARE, BC ==
[~2025-04-17] MED LIST changes: -ISOVUE-370 76% 100 ML VIAL As Ordered ONE
== END ==
LOC: M WHC 14:43
PROVIDERS: ATTEND Nurse Practitioner Family
DX: D61.9 Aplastic anemia, unspecified (principal)

== ENCOUNTER → 2025-05-06 | Outpatient (REF) | payer MEDICARE, BC ==
[2025-05-06 17:19] LABS: PLATELET COUNT, AUTOMATED 248 10^3/uL (150-450)
[2025-05-06 17:33] LABS: INR 0.98
== END ==
LOC: M LABDRAWC 17:13
PROVIDERS: ATTEND Physical Medicine & Rehabilitation
DX: Z01.818 Encounter for other preprocedural examination (principal)

== ENCOUNTER 2025-08-07 11:55 | Day surgery (SDC) | payer MEDICARE, BC ==
[~2025-08-07] VITALS: Ht 170.2 cm; Wt 72.9 kg
[~2025-08-07 11:55] MED LIST changes: +GLYCOPYRROLATE INJ 0.2 MG/ML 2 ML VIAL As Ordered ONE; +LIDOCAINE 2% 100 MG/5 ML SDV (FOR ANES.) As Ordered ONE
[2025-08-07 14:26] VITALS: TEMP 97
[2025-08-07 14:50] VITALS: BP 121/79; O2SAT 94
== END 2025-08-07 15:14 | disposition home or self-care (01) ==
LOC: M OPP 11:55
PROVIDERS: ATTEND Surgery
DX: D12.6 Benign neoplasm of colon, unspecified (principal); K57.30 Diverticulosis of large intestine without perforation or abscess without bleeding; Z86.0100 Personal history of colon polyps, unspecified; Z79.899 Other long term (current) drug therapy
CPT/HCPCS: 45385; 88305; J1596

== ENCOUNTER → 2025-09-01 | Outpatient (REF) | payer MEDICARE, BC ==
[~2025-09-01] MED LIST changes: -GLYCOPYRROLATE INJ 0.2 MG/ML 2 ML VIAL As Ordered ONE; -LIDOCAINE 2% 100 MG/5 ML SDV (FOR ANES.) As Ordered ONE
[2025-09-01 18:50] LABS: ALT/SGPT 15.0 U/L (7.0-40); AST/SGOT 21.0 U/L (<34); CALCIUM LEVEL 9.2 MG/DL (8.3-10.6); CARBON DIOXIDE LEVEL 26.0 MMOL/L (20-31); CHLORIDE LEVEL 104.0 MMOL/L (98-107); CHOLESTEROL LEVEL 200.0 MG/DL (<200); CHOLESTEROL RISK RATIO 2.85 (<5); CREATININE FOR GFR 1.12 MG/DL (0.70-1.30); GLOMERULAR FILTRATION RATE 66.4 (>35); LDL CHOLESTEROL 113.4 MG/DL (<100); NON-HDL-C 130.0 MG/DL; POTASSIUM SERUM 4.0 MMOL/L (3.5-5.1); SODIUM LEVEL 143.0 MMOL/L (136-145); TRIGLYCERIDES LEVEL 83.0 MG/DL (<150)
[2025-09-01 20:14] LABS: ESTIMATED AVERAGE GLUCOSE 114.0 MG/DL (60-110)
== END ==
LOC: M SFHCCLAY 11:01
PROVIDERS: ATTEND Physician Assistant
DX: D61.9 Aplastic anemia, unspecified (principal); K63.9 Disease of intestine, unspecified; E78.2 Mixed hyperlipidemia; G31.84 Mild cognitive impairment of uncertain or unknown etiology; R91.1 Solitary pulmonary nodule; M51.9 Unspecified thoracic, thoracolumbar and lumbosacral intervertebral disc disorder; F51.01 Primary insomnia; Z79.899 Other long term (current) drug therapy